=== PATIENT | male | born 1960 | race Two or more races ===

== ENCOUNTER 2020-04-17 19:57 | Emergency (ER) | payer OTHER ==
[~2020-04-17] VITALS: Ht 167.6 cm; Wt 90.7 kg
[2020-04-17] MEDS ORDERED: LANTUS SOL100 UNIT/1 (20:29)
[2020-04-17] MEDS ORDERED: LOSARTAN POTASS25 MG (20:29)
[2020-04-17] MEDS ORDERED: ATORVASTATIN CA20 MG (20:30)
[2020-04-17] MEDS ORDERED: SYNTHROID75 MCG (20:30)
[2020-04-17] MEDS ORDERED: ECOTRIN81 MG (20:30)
== END 2020-04-17 22:46 | disposition home or self-care (01) ==
LOC: ER 19:57
DX: L03.115 Cellulitis of right lower limb (principal)

== ENCOUNTER 2020-05-21 15:34 | Emergency (ER) | payer OTHER ==
[~2020-05-21] VITALS: Ht 167.6 cm; Wt 90.7 kg
[~2020-05-21 15:34] MED LIST: ATORVASTATIN CA20 MG; ECOTRIN81 MG; LANTUS SOL100 UNIT/1; LOSARTAN POTASS25 MG; SYNTHROID75 MCG
== END 2020-05-22 11:07 | disposition home or self-care (01) ==
LOC: ER 15:34
DX: I88.0 Nonspecific mesenteric lymphadenitis (principal); K65.4 Sclerosing mesenteritis; K59.09 Other constipation; E11.65 Type 2 diabetes mellitus with hyperglycemia; Z03.818 Encounter for observation for suspected exposure to other biological agents ruled out; R10.31 Right lower quadrant pain; Z79.4 Long term (current) use of insulin

== ENCOUNTER 2021-09-01 09:32 | Emergency (ER) | payer OTHER ==
[~2021-09-01] VITALS: Ht 167.6 cm; Wt 99.8 kg
[2021-09-01] MEDS ORDERED: KETO10TA2 PO (11:42)
== END 2021-09-01 12:05 | disposition home or self-care (01) ==
LOC: ER 09:32
DX: M25.531 Pain in right wrist (principal); M25.539 Pain in unspecified wrist

== ENCOUNTER 2024-05-27 06:36 | Emergency (ER) | payer OTHER ==
[~2024-05-27] VITALS: Ht 167.6 cm; Wt 104.3 kg
[~2024-05-27 06:36] MED LIST changes: +KETO10TA2 PO
[2024-05-27] MEDS ORDERED: BENZONATATE 100 MG CAPSULE PO ONE (09:15)
== END 2024-05-27 10:59 | disposition home or self-care (01) ==
LOC: ER 06:38
DX: R05.9 Cough, unspecified (principal); Z20.822 Contact with and (suspected) exposure to COVID-19; I10 Essential (primary) hypertension; E11.9 Type 2 diabetes mellitus without complications; Z79.4 Long term (current) use of insulin; Z91.013 Allergy to seafood